=== PATIENT | female | born 1970 | race Two or more races ===

== ENCOUNTER 2021-02-12 13:12 | Emergency (ER) | payer OTHER ==
[~2021-02-12] VITALS: Ht 167.6 cm; Wt 84.4 kg
[2021-02-12 13:12] VITALS: BP 151/84
[2021-02-12] MEDS ORDERED: NEOM10DR11 OT (13:22)
[2021-02-12] MEDS ORDERED: NEOM10SO7 EACH EAR (13:22)
[2021-02-12] MEDS ORDERED: AMOX-427 PO (13:22)
== END 2021-02-12 13:26 | disposition home or self-care (01) ==
LOC: ER 13:20
DX: H60.91 Unspecified otitis externa, right ear (principal); I10 Essential (primary) hypertension; G62.9 Polyneuropathy, unspecified; E03.9 Hypothyroidism, unspecified; E78.00 Pure hypercholesterolemia, unspecified; Z79.899 Other long term (current) drug therapy